=== PATIENT | male | born 1965 | race African-American/Black ===

== ENCOUNTER 2021-12-19 05:37 | Emergency (ER) | payer MEDICAID, OTHER ==
[~2021-12-19] VITALS: Ht 190.5 cm; Wt 118.0 kg
[2021-12-19] MEDS ORDERED: METHYLPREDNISOLONE SOD SUCC 125 MG/2 ML VIAL IV STA (05:42)
[2021-12-19] MEDS ORDERED: IPRATROPIUM BROMIDE (0.02%) 0.5MG/2.5ML NEB HHN STA (05:42)
[2021-12-19] MEDS ORDERED: ALBUTEROL (0.083%) 2.5MG/3ML NEB HHN STA (05:42)
[2021-12-19 06:14] LABS: BASOPHILS % 0.8 % (0.0-2.0); CHLORIDE 102 mEq/L (98-107); EOSINOPHILS % 1.1 % (0.0-5.0); HEMATOCRIT. 47.2 % (42.0-52.0); LYMPHOCYTES % 27.2 % (20.0-50.0); MEAN CORPUSCULAR HEMOGLOBIN 27.1 pg (28.0-32.0); MEAN CORPUSCULAR VOLUME 85.4 fL (80.0-94.0); MEAN PLATELET VOLUME 9.3 fl (7.4-10.4); MONOCYTES % 8.6 % (2.0-8.0); NEUTROPHILS % 62.3 % (40.0-76.0); PLATELET 246 x1000/uL (130-400); RED BLOOD CELL COUNT 5.53 mill/uL (4.7-6.1)
[2021-12-19 06:20] LABS: ETHANOL BLOOD < 10 mg/dL
[2021-12-19] MEDS ORDERED: ASPIRIN 325MG EC TABLET PO ONE (08:45)
[2021-12-19 10:00] VITALS: BP 143/77
== END 2021-12-19 11:03 | disposition short-term general hospital (02) ==
LOC: ER 05:37 → CANBEDREQ 17:02
DX: R06.03 Acute respiratory distress (principal); J45.909 Unspecified asthma, uncomplicated; I50.9 Heart failure, unspecified; Z20.822 Contact with and (suspected) exposure to COVID-19; Z98.890 Other specified postprocedural states
CPT/HCPCS: 36415; 71045; 80053; 80320; 83880; 84484; 85025; 87426; 93005; 94640; 96374; 99291; J2930; Z7610; G0480